=== PATIENT | male | born 1980 | race Caucasian/White ===

== ENCOUNTER 2020-05-30 07:05 | Outpatient (NON) | payer BC, SELFPAY ==
[2020-05-30 19:11] LABS: SARS-CoV-2 RNA PCR Positive
== END 2020-05-30 07:06 ==
LOC: ANHCOVIDDT 07:11
PROVIDERS: PCP Nurse Practitioner Family; Visit Provider Nurse Practitioner Family
DX: U07.1 COVID-19 (principal)
CPT/HCPCS: 87635; C9803; U0003